=== PATIENT | male | born 1970 | race American Indian/Alaskan Native ===

== ENCOUNTER 2017-05-30 14:00 | Emergency (ER) | payer OTHER ==
[2017-05-30] MEDS ORDERED: TETRACAINE 0.5% ONE (19:29)
[2017-05-30] MEDS ORDERED: FUL-GLO OP ONE ×2 (19:29→19:33)
[2017-05-30] MEDS ORDERED: TETRACAINE 0.5% OU ONE (19:33)
[2017-05-30 21:37] VITALS: BP 119/43
--- NOTE | 2017-05-30 21:59 | Emergency Department Report ---
Eye Injury/Foreign Body - HPI Eye Location: Right Severity: Mild Tetanus Status: Up to Date Eye Symptoms: Eye Pain: Yes, Blurred Vision: No, Eye Redness: Yes, Grinding/ Hammering Metal: No, Used Eye Protection: No, Contact Lens Use: No, Recalls Injury: Yes, Photophobia: No Other History: 46M p/w c/o right eye discomfort, redness and watery discharge for 1 week. States he was playing with his granddaughter and she poked his eye accidentally while he held her. Watery discharge. Tetanus vaccine up to date 2014. deneis any signficant blurry vision. ED Review of Systems ROS: Stated complaint: RIGHT EYE PAIN Other details as noted in HPI Constitutional: denies: chills, fever Eyes: eye pain, eye discharge (watery discharge from right eye). denies: vision change ENT: denies: ear pain, throat pain Respiratory: denies: cough, shortness of breath, wheezing Cardiovascular: denies: chest pain, palpitations Endocrine: no symptoms reported Gastrointestinal: denies: abdominal pain, nausea, diarrhea Genitourinary: denies: urgency, dysuria Musculoskeletal: denies: back pain, joint swelling, arthralgia Skin: denies: rash, lesions Neurological: denies: headache, weakness, paresthesias Psychiatric: denies: anxiety, depression Hematological/Lymphatic: denies: easy bleeding, easy bruising ED Past Medical Hx - Past Medical History Previous Medical History?: No - Surgical History Past Surgical History?: No - Social History Smoking Status: Current Some Day Smoker Substance Use Type: Alcohol, Marijuana - Medications Home Medications: Home Medications Medication Instructions Recorded Confirmed Last Taken Type Ibuprofen [Motrin] 800 mg PO Q8HR PRN #30 tablet 05/30/17 Unknown Rx Naphazoline HCl/Pheniramine 1 drop OP Q4H PRN #1 bottle 05/30/17 Unknown Rx [Naphcon-A Eye Drops] RX: Tobramycin 0.3% [Tobrex] 1 drop OD Q6H #1 bottle 05/30/17 Unknown Rx Eye Injury Exam - Exam General: Vital signs noted. No distress. Alert and acting appropriately. - Visual Acuity Left Vision Acuity Degree: 20/20 Eye Exam: Right Injection, Right Fluorescein Uptake Right Vision Acuity Degree: 20/30 Eye Exam: Right Injection, Right Fluorescein Uptake (1 cm corneal abrasion below left pupil) Bilateral Vision Acuity Degree: 20/20 Eye Exam: Right Chemosis, Right Fluorescein Uptake, Both EOMI ED Course Vital Signs 05/30/17 05/30/17 14:06 21:36 Temperature 98.5 F 98.5 F Pulse Rate 77 60 Respiratory 18 18 Rate Blood Pressure 130/77 Blood Pressure 119/43 [Right] O2 Sat by Pulse 99 100 Oximetry ED Medical Decision Making - Medical Decision Making A/P: Right corneal abrasion 1-tetanus up-to-date as of 2014 2-tobramycin eyedrops, Naphcon-A eyedrops 3-follow up with ophthalmology 4- visual acuity intact bilaterally, visualized corneal abrasion on flourescien. Vision 20/20 left eye, 20/30 right eye, 20/20 b/l Critical care attestation.: If time is entered above; I have spent that time in minutes in the direct care of this critically ill patient, excluding procedure time. ED Disposition Clinical Impression: Corneal abrasion, right Qualifiers: Encounter type: initial encounter Qualified Code(s): S05.01XA - Injury of conjunctiva and corneal abrasion without foreign body, right eye, initial encounter Disposition: - TO HOME OR SELFCARE Is pt being admited?: No Does the pt Need Aspirin: No Condition: Stable Instructions: Corneal Abrasion (ED) Prescriptions: Ibuprofen [Motrin] 800 mg PO Q8HR PRN #30 tablet PRN Reason: Pain Naphazoline HCl/Pheniramine [Naphcon-A Eye Drops] 1 drop OP Q4H PRN #1 bottle PRN Reason: Dry Eye(S) RX: Tobramycin 0.3% [Tobrex] 1 drop OD Q6H #1 bottle Referrals: BRIANNA KOENIG MD [Staff Physician] - 3-5 Days Forms: Work/School Release Form(ED) Time of Disposition: 21:57
== END 2017-05-30 22:05 | disposition home or self-care (01) ==
LOC: ED 14:00
DX: S05.01XA Injury of conjunctiva and corneal abrasion without foreign body, right eye, initial encounter (principal); F17.200 Nicotine dependence, unspecified, uncomplicated; F12.10 Cannabis abuse, uncomplicated; X58.XXXA Exposure to other specified factors, initial encounter; Y93.89 Activity, other specified; Y99.8 Other external cause status; Y92.89 Other specified places as the place of occurrence of the external cause
CPT/HCPCS: 99283